=== PATIENT | male | born 1975 | race Caucasian/White ===

== ENCOUNTER 2016-06-19 13:30 | Emergency (ER) | payer BC ==
--- NOTE | 2016-06-19 13:58 | UC ---
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 - History of Current Complaint Chief Complaint: UCBackPain Stated Complaint: BACK PAIN Time Seen by Provider: 06/19/16 13:44 Hx Obtained From: Patient Onset/Duration: Gradual Onset, Lasting Weeks - 3, Still Present Timing: Constant Severity Initially: Severe Severity Currently: Severe Back Pain: Is Discrete @ - MID TO LOWER BACK Character: Spasmodic, Stiffness Aggravating: Movement, Lifting, Bending, Walking, Cough Alleviating: Rest Associated Signs And Symptoms: Negative: Swelling, Redness, Bruising, Fever, Weakness, Numbness, Tingling, Abdominal Pain, Flank Pain, Bladder Incontinence, Bowel Incontinence - Allergies/Home Medications Allergies/Adverse Reactions: Allergies Allergy/AdvReac Type Severity Reaction Status Date / Time Bee Venom Allergy Anaphylatic Verified 06/19/16 13:42 Shock Coconut Oil Allergy Anaphylatic Verified 06/19/16 13:42 Shock Penicillins Allergy Anaphylatic Verified 06/19/16 13:42 Shock PMH/Surg Hx/FS Hx/Imm Hx Previously Healthy: Yes - Surgical History Surgical History: Yes Surgery Procedure, Year, and Place: left knee surgery - Family History Known Family History: Negative: Blood Disorder - Social History Alcohol Use: None Substance Use Type: Marijuana Substance Use Comment - Amount & Last Used: daily usage Smoking Status (MU): Heavy Every Day Tobacco Smoker Type: Cigarettes Amount Used/How Often: 1 1/2 pack per day Length of Time of Smoking/Using Tobacco: started at age 7 Have You Smoked in the Last Year: Yes Household Exposure Type: Cigarettes Review of Systems Constitutional: Negative Skin: Negative Eyes: Negative ENT: Negative Respiratory: Negative Cardiovascular: Negative Musculoskeletal: Other: - MID TO LOWER BACK PAIN All Other Systems Reviewed And Are Negative: Yes Physical Exam Triage Information Reviewed: Yes Appearance: Well-Appearing, No Pain Distress, Well-Nourished Vital Signs: Initial Vital Signs Temp 97.5 F 06/19/16 13:35 Pulse 69 06/19/16 13:35 Resp 16 06/19/16 13:35 BP 127/78 06/19/16 13:35 Pulse Ox 100 06/19/16 13:35 Vital Signs Reviewed: Yes Eyes: Positive: Conjunctiva Clear ENT: Positive: Normal ENT inspection, Hearing grossly normal, Pharynx normal Neck exam: Normal Neck: Positive: Supple, Nontender, No Lymphadenopathy Respiratory: Positive: Chest non-tender, Lungs clear, Normal breath sounds, No respiratory distress Cardiovascular: Positive: RRR, No Murmur, Pulses Normal Abdominal Exam: Normal Musculoskeletal: Positive: Other: - MID TO LOWER BACK TENDERNESS, NO MUSCLE SPASM , INCREASE PAIN WITH FLEXION OR EXTENSION, LOWER EXT: DTR + 2 BL. NORMAL STRENGTH Psychological Exam: Normal Skin Exam: Normal Back Pain Course/Dx - Differential Dx/Diagnosis Provider Diagnoses: BACK STRAIN Discharge - Discharge Plan Condition: Stable Disposition: HOME Prescriptions: Cyclobenzaprine TAB* [Flexeril TAB*] 10 mg PO BID #20 tab Naproxen [Naproxen 500 MG TABS] 500 mg PO BID #20 tab Patient Education Materials: Thoracic Back Strain (ED) Forms: *Work Release Additional Instructions: FOLLOW UP WITH YOUR PCP IN 7 DAYS
--- NOTE | 2016-06-19 14:10 | RAD ---
Indication: Mid to lower back pain. 2 views of the lumbar spine demonstrate vertebral bodies to be normal in height. Disc spaces all well-preserved. Pedicles appear intact. IMPRESSION: No fracture of the lumbar spine.
[2016-06-19 14:25] VITALS: BP 128/74
== END 2016-06-19 14:25 | disposition home or self-care (01) ==
LOC: UCCORT 13:30
DX: S39.012A Strain of muscle, fascia and tendon of lower back, initial encounter (principal); X58.XXXA Exposure to other specified factors, initial encounter; Y93.9 Activity, unspecified; Y92.9 Unspecified place or not applicable; Z88.0 Allergy status to penicillin; F12.90 Cannabis use, unspecified, uncomplicated; F17.210 Nicotine dependence, cigarettes, uncomplicated
CPT/HCPCS: 72080; 99212; G0463

== ENCOUNTER 2017-04-19 09:20 | Emergency (ER) | payer BC ==
[2017-04-19 09:50] VITALS: BP 144/81
--- NOTE | 2017-04-19 10:36 | UC ---
FLU HPI - HPI Summary HPI Summary: Cough congestion body aches, chills and subjective fever - History of Current Complaint Hx Obtained From: Patient Onset/Duration: Lasting Days - 2 Severity Currently: Moderate Severity Initially: Moderate Pain Intensity: 7 Pain Scale Used: 0-10 Numeric Associated Signs & Symptoms: Positive: Fever, Myalgia, Cough, Nasal Congestion, Headache <Lisa Rene - Last Filed: 04/19/17 13:22> <Denae Burnett - Last Filed: 04/19/17 18:29> - History of Current Complaint Chief Complaint: UCGeneralIllness Stated Complaint: FEVER COUGH Time Seen by Provider: 04/19/17 10:28 - Allergy/Home Medications Allergies/Adverse Reactions: Allergies Allergy/AdvReac Type Severity Reaction Status Date / Time Bee Venom Allergy Anaphylatic Verified 04/19/17 09:50 Shock Coconut Oil Allergy Anaphylatic Verified 04/19/17 09:50 Shock Penicillins Allergy Anaphylatic Verified 04/19/17 09:50 Shock Home Medications: Home Medications [id number] [Nyquil Severe Cold/Flu 5-6.25-10-325 mg/15Ml] 1 cap PO DAILY 04/19/17 [History Confirmed 04/19/17] PMH/Surg Hx/FS Hx/Imm Hx Previously Healthy: Yes - Surgical History Surgical History: Yes Surgery Procedure, Year, and Place: left knee surgery - Family History Known Family History: Positive: None Negative: Blood Disorder - Social History Occupation: Employed Full-time Lives: With Family Alcohol Use: None Substance Use Type: Marijuana Substance Use Comment - Amount & Last Used: daily usage Smoking Status (MU): Heavy Every Day Tobacco Smoker Type: Cigarettes Amount Used/How Often: 1 1/2 pack per day Length of Time of Smoking/Using Tobacco: started at age 7 Have You Smoked in the Last Year: Yes Household Exposure Type: Cigarettes <Lisa Rene - Last Filed: 04/19/17 13:22> Review of Systems Constitutional: Fever, Chills, Fatigue Skin: Negative Eyes: Negative ENT: Sore Throat, Ear Ache, Nasal Discharge Respiratory: Cough Cardiovascular: Negative Gastrointestinal: Negative Genitourinary: Negative Motor: Negative Neurovascular: Negative Musculoskeletal: Arthralgia, Myalgia Neurological: Headache Psychological: Negative Is Patient Immunocompromised?: No All Other Systems Reviewed And Are Negative: Yes <Lisa Rene - Last Filed: 04/19/17 13:22> Physical Exam Triage Information Reviewed: Yes Appearance: Well-Nourished, Ill-Appearing, Pain Distress Vital Signs: Initial Vital Signs Temp 100.1 F 04/19/17 09:46 Pulse 83 04/19/17 09:46 Resp 16 04/19/17 09:46 BP 144/81 04/19/17 09:46 Pulse Ox 99 04/19/17 09:46 Vital Signs Reviewed: Yes Eye Exam: Normal Eyes: Positive: Conjunctiva Clear ENT Exam: Normal ENT: Positive: Normal ENT inspection, Hearing grossly normal, Pharynx normal, Nasal congestion, Nasal drainage, TMs normal, Uvula midline. Negative: Tonsillar swelling, Tonsillar exudate, Trismus, Muffled voice, Hoarse voice, Dental tenderness, Sinus tenderness Dental Exam: Normal Neck exam: Normal Neck: Positive: Supple, Nontender, No Lymphadenopathy Respiratory Exam: Normal Respiratory: Positive: Chest non-tender, Lungs clear, Normal breath sounds, No respiratory distress, No accessory muscle use Cardiovascular Exam: Normal Cardiovascular: Positive: RRR, No Murmur, Pulses Normal, Brisk Capillary Refill Musculoskeletal Exam: Normal Musculoskeletal: Positive: Strength Intact, ROM Intact, No Edema Neurological Exam: Normal Neurological: Positive: Alert, Muscle Tone Normal Psychological Exam: Normal Skin Exam: Normal <Lisa Rene - Last Filed: 04/19/17 13:22> Vital Signs: Initial Vital Signs Temp 100.1 F 04/19/17 09:46 Pulse 83 04/19/17 09:46 Resp 16 04/19/17 09:46 BP 144/81 04/19/17 09:46 Pulse Ox 99 04/19/17 09:46 <Denae Burnett - Last Filed: 04/19/17 18:29> Diagnostics - Laboratory Diagnostic Studies Completed/Ordered: Influenza B (+) <Lisa Rene - Last Filed: 04/19/17 13:22> Flu Course/Dx - Course Course Of Treatment: tamiflu increase fluids, tamiflu, ibuprofen robitussin and Codiene follow with pcp - Differential Dx/Diagnosis Provider Diagnoses: Influenza B, Nicotine Dependent, Elevated Blood Pressure with out Dx of Hypertension <Lisa Rene - Last Filed: 04/19/17 13:22> Discharge <Lisa Rene - Last Filed: 04/19/17 13:22> <Denae Burnett - Last Filed: 04/19/17 18:29> - Discharge Plan Condition: Stable Disposition: HOME Prescriptions: Guaifenesin-Codeine [Guaifenesin/Codeine] 5 - 10 ml PO Q6H PRN #60 dennis MDD 40ml PRN Reason: cough Patient Education Materials: Influenza (ED), Hypertension (ED) Forms: *Work Release Referrals: [facility] [place] [facility] [place]] - 2 Weeks Attestation Statement User Type: Provider - I was available for consult. This patient was seen by the RED. The patient was not presented to, seen by, or examined by me. -Mindi <Deane Burnett - Last Filed: 04/19/17 18:29>
== END 2017-04-19 11:02 | disposition home or self-care (01) ==
LOC: UCCORT 09:20
DX: J10.1 Influenza due to other identified influenza virus with other respiratory manifestations (principal); F17.200 Nicotine dependence, unspecified, uncomplicated; R03.0 Elevated blood-pressure reading, without diagnosis of hypertension; Z72.0 Tobacco use; F12.90 Cannabis use, unspecified, uncomplicated
CPT/HCPCS: 87502; 99212; G0463